=== PATIENT | female | born 1995 | race Caucasian/White ===

== ENCOUNTER 2017-05-29 10:24 | Emergency (ER) | payer BC, OTHER ==
[2017-05-29] MEDS ORDERED: diphenhydrAMINE 50 MG/ML SDV IVPUSH ONE (10:38)
[2017-05-29] MEDS ORDERED: LORazepam 2 MG/ML MDV IVPUSH ONE (10:39)
[2017-05-29] MEDS ORDERED: Ketorolac 30 MG/ML SDV IVPUSH ONE (10:39)
[2017-05-29] MEDS ORDERED: Ondansetron 4 MG/2 ML SDV IVPUSH ONE (10:39)
[2017-05-29] MEDS ORDERED: Sodium Chloride 0.9% 1,000 ML IV ONE (10:39)
--- NOTE | 2017-05-29 11:52 | CT ---
EXAMINATION: Non contrast CT head. Coronal and sagittal reformats. HISTORY: Pain FINDINGS: No evidence of intra or extra axial hemorrhage, mass, midline shift, hydrocephalus or edema. No hypoattenuation changes in the major vascular territories to suggest acute infarct. No abnormal intracranial calcifications are detected. No evidence of substantial vascular calcificat ions. Paranasal sinuses and mastoid air cells are well aerated without substantial findings. Pituitary fossa appears unremarkable. Calvarium is intact. No evidence of skull fracture. IMPRESSION: No acute intracranial findings.
[2017-05-29 12:16] LABS: CHLORIDE,CL 110 mmol/L (98-110); SODIUM,NA 141 mmol/L (136-146)
--- NOTE | 2017-05-29 12:29 | EDM.PDOC ---
ED HPI GENERAL MEDICAL PROBLEM - General Chief Complaint: Allergic Reaction Stated Complaint: ALLERGIC REACTION Time Seen by Provider: 05/29/17 10:50 Source of Information: Reports: Patient, Family History Limitations: Reports: No Limitations - History of Present Illness INITIAL COMMENTS - FREE TEXT/NARRATIVE: History of present illness: [21-year-old female comes in with complaints of acute allergic reaction. Patient indicates that she had taken a Naprosyn prescription and subsequently felt left-sided tingling and left-sided swelling of her tongue. Patient knowledge is history of taking Aleve without problems and with further discussion acknowledges that she has had intermittent periods of photophobia/ buzzing in her ears/syncopal/passing out episodes. Patient indicates that she is concerned and doesn't understand what is going on and would like to be evaluated.] Review of systems: As per history of present illness and below otherwise all systems reviewed and negative. Past medical history: As per history of present illness and as reviewed below otherwise noncontributory. Surgical history: As per history of present illness and as reviewed below otherwise noncontributory. Social history: No reported history of drug or alcohol abuse. Family history: As per history of present illness and as reviewed below otherwise noncontributory. Physical exam: HEENT: Atraumatic, normocephalic, pupils reactive, negative for conjunctival pallor or scleral icterus, mucous membranes moist, throat clear, neck supple, nontender, trachea midline. Lungs: Clear to auscultation, breath sounds equal bilaterally, chest nontender. Heart: S1S2, regular, negative for clicks, rubs, or JVD. Abdomen: Soft, nondistended, nontender. Negative for masses or hepatosplenomegaly. Negative for costovertebral tenderness. Pelvis: Stable nontender. Genitourinary: Deferred. Rectal: Deferred. Extremities: Atraumatic, negative for cords or calf pain. Neurovascular unremarkable. Neuro: Awake, alert, oriented. Cranial nerves II through XII unremarkable. Cerebellum unremarkable. Motor and sensory unremarkable throughout. Exam nonfocal. Global assessment is benign save the subjective complaint as noted in history of present illness patient at this time has no significant presentation of edema or swelling. Patient can make full sentences without slurring. Patient's tongue with even an uniform. Due to patient's protracted history of altered neurological sensorium will refer to neurology for further diagnostic workup and evaluation, as today all her findings are negative today. Diagnostics: [CBC, CMP, CT of the head, UA] Therapeutics: [IV fluid, Toradol, Zofran, Ativan] Impression: [#1 altered sensorium] Plan: [Referral to neurology] Definitive disposition and diagnosis as appropriate pending reevaluation and review of above. - Related Data Allergies Allergy/AdvReac Type Severity Reaction Status Date / Time oxycodone [Oxycodone] Allergy Hives Verified 05/29/17 10:32 promethazine Allergy Hives Verified 05/29/17 10:32 Sulfa (Sulfonamide Allergy Hives Verified 05/29/17 10:32 Antibiotics) Home Meds: Home Meds Levonorgestrel-Ethin Estradiol [Orsythia-28 Tablet] 1 each PO DAILY 05/29/17 [ History] Past Medical History - Past Health History Medical/Surgical History: Denies Medical/Surgical History Psychiatric History: Reports: Anxiety - Infectious Disease History Infectious Disease History: Reports: Chicken Pox - Past Surgical History HEENT Surgical History: Reports: Adenoidectomy, Tonsillectomy Social & Family History - Family History Family Medical History: Noncontributory - Tobacco Use Smoking Status *Q: Current Every Day Smoker Years of Tobacco use: 4 Packs/Tins Daily: 1 Second Hand Smoke Exposure: No - Caffeine Use Caffeine Use: Reports: Coffee - Alcohol Use Days Per Week of Alcohol Use: 0 - Recreational Drug Use Recreational Drug Use: No Drug Use in Last 12 Months: No ED ROS ALLERGIC REACTION - Review of Systems Review Of Systems: See Below (See history of present illness) ED EXAM GENERAL NO PERIP PULSE - Physical Exam Exam: See Below (See history of present illness) Course - Vital Signs Last Recorded V/S: Last Vital Signs Temp 36.5 C 05/29/17 12:00 Pulse 61 05/29/17 12:00 Resp 16 05/29/17 12:00 BP 106/64 05/29/17 12:00 Pulse Ox 98 05/29/17 12:00 - Orders/Labs/Meds Labs: Laboratory Tests 05/29/17 05/29/17 Range/Units 11:28 11:28 WBC 6.83 (4.0-11.0) K/uL RBC 4.79 (4.30-5.90) M/uL Hgb 15.6 (12.0-16.0) g/dL Hct 45.7 (36.0-46.0) % MCV 95.4 (80.0-98.0) fL MCH 32.6 H (27.0-32.0) pg MCHC 34.1 (31.0-37.0) g/dL RDW Std Deviation 47.6 (28.0-62.0) fl RDW Coeff of Ana Luisa 14 (11.0-15.0) % Plt Count 334 (150-400) K/uL MPV 10.00 (7.40-12.00) fL Neut % (Auto) 55.3 (48.0-80.0) % Lymph % (Auto) 30.5 (16.0-40.0) % [place] % (Auto) 9.1 (0.0-15.0) % Eos % (Auto) 4.8 (0.0-7.0) % Baso % (Auto) 0.3 (0.0-1.5) % Neut # (Auto) 3.8 (1.4-5.7) K/uL Lymph # (Auto) 2.1 (0.6-2.4) K/uL [place] # (Auto) 0.6 (0.0-0.8) K/uL Eos # (Auto) 0.3 (0.0-0.7) K/uL Baso # (Auto) 0.0 (0.0-0.1) K/uL Nucleated RBC % 0.0 /100WBC Nucleated RBCs # 0 K/uL Sodium 141 (136-146) mmol/L Potassium 3.7 (3.5-5.1) mmol/L Chloride 110 (98-110) mmol/L Carbon Dioxide 24 (21-31) mmol/L BUN 12 (6.0-23.0) mg/dL Creatinine 0.8 (0.6-1.5) mg/dL Est Cr Clr Drug Dosing TNP Estimated GFR (MDRD) > 60.0 ml/min Glucose 77 (60-110) mg/dL Calcium 9.6 (8.8-10.8) mg/dL Total Bilirubin 0.6 (0.1-1.5) mg/dL AST 17 (5-40) IU/L ALT 17 (8-54) IU/L Alkaline Phosphatase 60 (40-150) Total Protein 7.1 (6.0-8.0) g/dL Albumin 4.1 (3.5-5.0) g/dL Globulin 3.0 (2.0-3.5) g/dL Albumin/Globulin Ratio 1.4 (1.3-2.8) Meds: Medications Discontinued Medications Generic Name Dose Route Start Last Admin Trade Name Freq PRN Reason Stop Dose Admin Diphenhydramine HCl 50 mg 05/29/17 10:38 05/29/17 10:45 Benadryl IVPUSH 05/29/17 10:39 50 mg ONETIME ONE Administration Sodium Chloride 1,000 mls @ 999 mls/hr 05/29/17 10:39 05/29/17 10:45 Normal Saline IV 05/29/17 11:39 999 mls/hr STAT ONE Administration Ketorolac Tromethamine 30 mg 05/29/17 10:39 05/29/17 10:50 Toradol IVPUSH 05/29/17 10:40 30 mg ONETIME ONE Administration Lorazepam 1 mg 05/29/17 10:39 05/29/17 10:49 Ativan IVPUSH 05/29/17 10:40 1 mg ONETIME ONE Administration Ondansetron HCl 8 mg 05/29/17 10:39 05/29/17 10:51 Zofran IVPUSH 05/29/17 10:40 8 mg ONETIME ONE Administration Departure - Departure Time of Disposition: 12:33 Disposition: Home, Self-Care 01 Condition: Good Clinical Impression: Altered sensorium - Discharge Information Referrals: PCP,None [Primary Care Provider] - Additional Instructions: The following information is given to patients seen in the emergency department who are being discharged to home. This information is to outline your options for follow-up care. We provide all patients seen in our emergency department with a follow-up referral. The need for follow-up, as well as the timing and circumstances, are variable depending upon the specifics of your emergency department visit. If you don't have a primary care physician on staff, we will provide you with a referral. We always advise you to contact your personal physician following an emergency department visit to inform them of the circumstance of the visit and for follow-up with them and/or the need for any referrals to a consulting specialist. The emergency department will also refer you to a specialist when appropriate. This referral assures that you have the opportunity for follow-up care with a specialist. All of these measure are taken in an effort to provide you with optimal care, which includes your follow-up. Under all circumstances we always encourage you to contact your private physician who remains a resource for coordinating your care. When calling for follow-up care, please make the office aware that this follow-up is from your recent emergency room visit. If for any reason you are refused follow-up, please contact the [facility] Emergency Department at and asked to speak to the emergency department charge nurse. Please follow-up with primary care provider one to 2 days Call neurology and schedule appointment as soon as possible Return to ED as needed as discussed [facility] - Neurology Professional [address], [address] [place] [address]
== END 2017-05-29 12:57 | disposition home or self-care (01) ==
LOC: MW.ED 10:24
DX: R41.82 Altered mental status, unspecified (principal); F17.210 Nicotine dependence, cigarettes, uncomplicated; Z88.5 Allergy status to narcotic agent; Z88.2 Allergy status to sulfonamides; Z79.899 Other long term (current) drug therapy
CPT/HCPCS: 36415; 70450; 80053; 85025; 96361; 96374; 96375; 99284; J1200; J1885; J2060; J2405; J7040; 99283

== ENCOUNTER 2017-12-14 14:50 | Emergency (ER) | payer BC ==
[2017-12-14] MEDS ORDERED: Ondansetron 4 MG/2 ML SDV IVPUSH ONE (15:11)
[2017-12-14] MEDS ORDERED: Sodium Chloride 0.9% 1,000 ML IV ONE (15:11)
[2017-12-14] MEDS ORDERED: LORazepam 2 MG/ML SDV IVPUSH ONE (15:11)
[2017-12-14] MEDS ORDERED: Ketorolac 30 MG/ML SDV IVPUSH ONE (15:11)
--- NOTE | 2017-12-14 15:16 | EDM.PDOC ---
ED HPI GENERAL MEDICAL PROBLEM - General Chief Complaint: Abdominal Pain Stated Complaint: ABDOMINAL PAIN Time Seen by Provider: 12/14/17 14:54 Source of Information: Reports: Patient History Limitations: Reports: No Limitations - History of Present Illness INITIAL COMMENTS - FREE TEXT/NARRATIVE: HISTORY AND PHYSICAL: History of present illness: Patient is a 22-year-old female who presents to the emergency room today with complaints of epigastric pain that radiates up into her chest. She describes this pain as a sharp and stabbing, which causes nausea and vomiting. These symptoms have been intermittent and chronic since "the fourth grade". There have been more frequent and severe since her gallbladder and appendix were removed. He has doctored multiple times with different providers and has not found any diagnoses. Most recently she saw Dr. Mata who is working her up for abdominal migraines. Review of systems: As per history of present illness and below otherwise all systems reviewed and negative. Past medical history: As per history of present illness and as reviewed below otherwise noncontributory. Surgical history: As per history of present illness and as reviewed below otherwise noncontributory. Social history: No reported history of drug or alcohol abuse. Family history: As per history of present illness and as reviewed below otherwise noncontributory. Physical exam: General: HEENT: Atraumatic, normocephalic, pupils equal and reactive bilaterally, negative for conjunctival pallor or scleral icterus, mucous membranes moist, throat clear, neck supple, nontender, trachea midline. No drooling or trismus noted. No meningeal signs Lungs: Clear to auscultation, breath sounds equal bilaterally, chest nontender. Heart: S1S2, regular rate and rhythm without overt murmur Abdomen: Soft, nondistended, nontender. Negative for masses or hepatosplenomegaly. Negative for costovertebral tenderness. Pelvis: Stable nontender. Genitourinary: Deferred. Rectal: Deferred. Skin: Intact, warm, dry. No lesions or rashes noted. Extremities: Atraumatic, negative for cords or calf pain. Neurovascular unremarkable. Neuro: Awake, alert, oriented. Cranial nerves II through XII unremarkable. Cerebellum unremarkable. Motor and sensory unremarkable throughout. Exam nonfocal. Notes: Patient appears very anxious and has labored breathing. States she is seeing Dr. Mata at this time for the chronic epigastric pain and worked up for abdominal migraines. We will give her some IV fluid, Zofran and Toradol and Ativan. Lab work and CT of the abdomen and pelvis will be completed. Patient has had an appendectomy and cholecystectomy. Lab work is unremarkable. Patient does improved after the IV medications. CT of the abdomen/pelvis pending. CT shows no specific identifiable cause of the patient's abdominal pain. All results were shared with the patient and mother at bedside. We discussed possible treatment options to help manage her pain. She would like to try tramadol as needed along with Zofran. She will follow-up with her primary care provider next week for further evaluation and management. Denies any further questions at this time. Diagnostics: CBC, CMP, UA, urine , H. pylori, EKG, CT abdomen and pelvis Therapeutics: IV fluid, Zofran, Toradol, Ativan Impression: Abdominal pain Plan: 1. Runnels diet over the next 24-48 hours. Advance as tolerated. 2. Zofran as tolerated for nausea management. Tramadol for moderate to severe pain. May cause drowsiness, so do not take while driving or needing to be functioning outside the house. 3. These continued to see Dr. Mata to further evaluate and manage your abdominal complaints 4. Return to the ED as needed and as discussed. Definitive disposition and diagnosis as appropriate pending reevaluation and review of above. Onset: Today Duration: Day(s):, Chronic upper abdomen Pain Score (Numeric/FACES): 10 - Related Data Allergies Allergy/AdvReac Type Severity Reaction Status Date / Time oxycodone [Oxycodone] Allergy Hives Verified 12/14/17 15:10 promethazine Allergy Hives Verified 12/14/17 15:10 Sulfa (Sulfonamide Allergy Hives Verified 12/14/17 15:10 Antibiotics) Home Meds: Home Meds Levonorgestrel-Ethin Estradiol [Orsythia-28 Tablet] 1 each PO DAILY 05/29/17 [ History] Past Medical History - Past Health History Medical/Surgical History: Denies Medical/Surgical History Psychiatric History: Reports: Anxiety - Infectious Disease History Infectious Disease History: Reports: Chicken Pox - Past Surgical History HEENT Surgical History: Reports: Adenoidectomy, Tonsillectomy Social & Family History - Family History Family Medical History: Noncontributory - Caffeine Use Caffeine Use: Reports: Coffee ED ROS GENERAL - Review of Systems Review Of Systems: ROS reveals no pertinent complaints other than HPI. ED EXAM, GI/ABD - Physical Exam Exam: See Below (See dictation) Course - Vital Signs Last Recorded V/S: Last Vital Signs Temp 98.7 F 12/14/17 15:10 Pulse 100 12/14/17 15:10 Resp 18 12/14/17 15:10 BP 134/85 12/14/17 15:10 Pulse Ox 99 12/14/17 15:10 - Orders/Labs/Meds Orders: Active Orders 24 hr Category Date Time Status EKG Documentation Completion [RC] STAT Care 12/14/17 15:13 Active Abdomen Pelvis w Cont [CT] Stat Exams 12/14/17 15:17 Taken HCG QUALITATIVE,URINE [URCHEM] Stat Lab 12/14/17 16:27 Ordered UA W/MICROSCOPIC [URIN] Stat Lab 12/14/17 16:27 Ordered Labs: Laboratory Tests 12/14/17 12/14/17 12/14/17 Range/Units 15:46 15:46 15:46 WBC 7.30 (4.0-11.0) K/uL RBC 4.51 (4.30-5.90) M/uL Hgb 14.9 (12.0-16.0) g/dL Hct 42.8 (36.0-46.0) % MCV 94.9 (80.0-98.0) fL MCH 33.0 H (27.0-32.0) pg MCHC 34.8 (31.0-37.0) g/dL RDW Std Deviation 47.7 (28.0-62.0) fl RDW Coeff of Ana Luisa 14 (11.0-15.0) % Plt Count 278 (150-400) K/uL MPV 9.50 (7.40-12.00) fL Neut % (Auto) 64.2 (48.0-80.0) % Lymph % (Auto) 26.4 (16.0-40.0) % [place] % (Auto) 7.4 (0.0-15.0) % Eos % (Auto) 1.6 (0.0-7.0) % Baso % (Auto) 0.4 (0.0-1.5) % Neut # (Auto) 4.7 (1.4-5.7) K/uL Lymph # (Auto) 1.9 (0.6-2.4) K/uL [place] # (Auto) 0.5 (0.0-0.8) K/uL Eos # (Auto) 0.1 (0.0-0.7) K/uL Baso # (Auto) 0.0 (0.0-0.1) K/uL Nucleated RBC % 0.0 /100WBC Nucleated RBCs # 0 K/uL Sodium 141 (136-145) mmol/L Potassium 3.9 (3.5-5.1) mmol/L Chloride 108 H (98-107) mmol/L Carbon Dioxide 23.6 (21.0-32.0) mmol/L BUN 15 (7.0-18.0) mg/dL Creatinine 0.9 (0.6-1.0) mg/dL Est Cr Clr Drug Dosing 74.61 mL/min Estimated GFR (MDRD) > 60.0 ml/min Glucose 93 (74-106) mg/dL Calcium 9.6 (8.5-10.1) mg/dL Total Bilirubin 0.3 (0.2-1.0) mg/dL AST 20 (15-37) IU/L ALT 22 (14-63) IU/L Alkaline Phosphatase 60 (46-116) U/L Total Protein 7.2 (6.4-8.2) g/dL Albumin 3.8 (3.4-5.0) g/dL Globulin 3.4 (2.0-3.5) g/dL Albumin/Globulin Ratio 1.1 L (1.3-2.8) Urine Color Urine Appearance Urine pH (5.0-8.0) Ur Specific [place] (1.001-1.035) Urine Protein (NEGATIVE) mg/dL Urine Glucose (UA) (NEGATIVE) mg/dL Urine Ketones (NEGATIVE) mg/dL Urine Occult Blood (NEGATIVE) Urine Nitrite (NEGATIVE) Urine Bilirubin (NEGATIVE) Urine Urobilinogen (<2.0) EU/dL Ur Leukocyte Esterase (NEGATIVE) Urine RBC (0-2/HPF) Urine WBC (0-5/HPF) Ur Epithelial Cells (NONE-FEW) Urine Bacteria (NEGATIVE) Urine HCG, Qual (NEGATIVE) H. pylori IgG Antibody NEGATIVE (NEG) 12/14/17 12/14/17 Range/Units 16:27 16:27 WBC (4.0-11.0) K/uL RBC (4.30-5.90) M/uL Hgb (12.0-16.0) g/dL Hct (36.0-46.0) % MCV (80.0-98.0) fL MCH (27.0-32.0) pg MCHC (31.0-37.0) g/dL RDW Std Deviation (28.0-62.0) fl RDW Coeff of Ana Luisa (11.0-15.0) % Plt Count (150-400) K/uL MPV (7.40-12.00) fL Neut % (Auto) (48.0-80.0) % Lymph % (Auto) (16.0-40.0) % [place] % (Auto) (0.0-15.0) % Eos % (Auto) (0.0-7.0) % Baso % (Auto) (0.0-1.5) % Neut # (Auto) (1.4-5.7) K/uL Lymph # (Auto) (0.6-2.4) K/uL [place] # (Auto) (0.0-0.8) K/uL Eos # (Auto) (0.0-0.7) K/uL Baso # (Auto) (0.0-0.1) K/uL Nucleated RBC % /100WBC Nucleated RBCs # K/uL Sodium (136-145) mmol/L Potassium (3.5-5.1) mmol/L Chloride (98-107) mmol/L Carbon Dioxide (21.0-32.0) mmol/L BUN (7.0-18.0) mg/dL Creatinine (0.6-1.0) mg/dL Est Cr Clr Drug Dosing mL/min Estimated GFR (MDRD) ml/min Glucose (74-106) mg/dL Calcium (8.5-10.1) mg/dL Total Bilirubin (0.2-1.0) mg/dL AST (15-37) IU/L ALT (14-63) IU/L Alkaline Phosphatase (46-116) U/L Total Protein (6.4-8.2) g/dL Albumin (3.4-5.0) g/dL Globulin (2.0-3.5) g/dL Albumin/Globulin Ratio (1.3-2.8) Urine Color YELLOW Urine Appearance CLEAR Urine pH 6.5 (5.0-8.0) Ur Specific [place] 1.025 (1.001-1.035) Urine Protein NEGATIVE (NEGATIVE) mg/dL Urine Glucose (UA) NEGATIVE (NEGATIVE) mg/dL Urine Ketones NEGATIVE (NEGATIVE) mg/dL Urine Occult Blood TRACE-INTACT (NEGATIVE) Urine Nitrite NEGATIVE (NEGATIVE) Urine Bilirubin NEGATIVE (NEGATIVE) Urine Urobilinogen 0.2 (<2.0) EU/dL Ur Leukocyte Esterase NEGATIVE (NEGATIVE) Urine RBC 0-2 (0-2/HPF) Urine WBC 0-2 (0-5/HPF) Ur Epithelial Cells FEW (NONE-FEW) Urine Bacteria FEW (NEGATIVE) Urine HCG, Qual NEGATIVE (NEGATIVE) H. pylori IgG Antibody (NEG) Meds: Medications Discontinued Medications Generic Name Dose Route Start Last Admin Trade Name Freq PRN Reason Stop Dose Admin Al Hydroxide/Mg Hydroxide 15 0 ml 12/14/17 17:38 12/14/17 17:51 ml/ Metoclopramide HCl 5 mg/ PO 12/14/17 17:39 25 each Lidocaine HCl 5 ml ONETIME ONE Administration Sodium Chloride 1,000 mls @ 999 mls/hr 12/14/17 15:11 12/14/17 15:43 Normal Saline IV 12/14/17 16:11 999 mls/hr STAT ONE Administration Iopamidol 90 ml 12/14/17 17:39 12/14/17 17:40 Isovue-370 (76%) IVPUSH 12/14/17 17:40 90 ml ONETIME STA Administration Ketorolac Tromethamine 30 mg 12/14/17 15:11 12/14/17 15:42 Toradol IVPUSH 12/14/17 15:12 30 mg ONETIME ONE Administration Lorazepam 1 mg 12/14/17 15:11 12/14/17 15:43 Ativan IVPUSH 12/14/17 15:12 1 mg ONETIME ONE Administration Ondansetron HCl 4 mg 12/14/17 15:11 12/14/17 15:42 Zofran IVPUSH 12/14/17 15:12 4 mg ONETIME ONE Administration Departure - Departure Time of Disposition: 18:11 Disposition: Home, Self-Care 01 Clinical Impression: Abdominal pain Qualifiers: Abdominal location: epigastric Qualified Code(s): R10.13 - Epigastric pain - Discharge Information Instructions: Abdominal Pain, Adult, [id number] Referrals: Marques Swan MD [Primary Care Provider] - Forms: ED Department Discharge Additional Instructions: The following information is given to patients seen in the emergency department who are being discharged to home. This information is to outline your options for follow-up care. We provide all patients seen in our emergency department with a follow-up referral. The need for follow-up, as well as the timing and circumstances, are variable depending upon the specifics of your emergency department visit. If you don't have a primary care physician on staff, we will provide you with a referral. We always advise you to contact your personal physician following an emergency department visit to inform them of the circumstance of the visit and for follow-up with them and/or the need for any referrals to a consulting specialist. The emergency department will also refer you to a specialist when appropriate. This referral assures that you have the opportunity for follow-up care with a specialist. All of these measure are taken in an effort to provide you with optimal care, which includes your follow-up. Under all circumstances we always encourage you to contact your private physician who remains a resource for coordinating your care. When calling for follow-up care, please make the office aware that this follow-up is from your recent emergency room visit. If for any reason you are refused follow-up, please contact the [facility] Emergency Department at and asked to speak to the emergency department charge nurse. [facility] [address] [place] [id number] 1. Runnels diet over the next 24-48 hours. Advance as tolerated. 2. Zofran as tolerated for nausea management. Tramadol for moderate to severe pain. May cause drowsiness, so do not take while driving or needing to be functioning outside the house. 3. These continued to see Dr. Mata to further evaluate and manage your abdominal complaints 4. Return to the ED as needed and as discussed. - My Orders Last 24 Hours: My Active Orders 12/14/17 15:13 EKG Documentation Completion [RC] STAT 12/14/17 15:17 Abdomen Pelvis w Cont [CT] Stat 12/14/17 16:27 HCG QUALITATIVE,URINE [URCHEM] Stat UA W/MICROSCOPIC [URIN] Stat - Assessment/Plan Last 24 Hours: My Active Orders 12/14/17 15:13 EKG Documentation Completion [RC] STAT 12/14/17 15:17 Abdomen Pelvis w Cont [CT] Stat 12/14/17 16:27 HCG QUALITATIVE,URINE [URCHEM] Stat UA W/MICROSCOPIC [URIN] Stat
[2017-12-14 16:33] LABS: CHLORIDE,CL 108 mmol/L (98-107); SODIUM,NA 141 mmol/L (136-145)
[2017-12-14] MEDS ORDERED: Alum Hydrox/Mag Hydrox/Simeth 15 ML, Metoclopramide 5 MG, Lidocaine 2% 5 ML PO ONE ×3 (17:38)
[2017-12-14] MEDS ORDERED: Iopamidol 755 Mg/ML 100 ML Bottle IVPUSH STA (17:39)
--- NOTE | 2017-12-15 20:17 | CT ---
EXAM DATE: 12/14/17 PATIENT'S AGE: 22 Patient: KEEGAN MARTEL Facility: [place], [place] Site . Site : 1995 Study: CT Abdomen/Pelvis w cont [id number]/[id number] 5:38:19 PM Ordering Physician: Doctor Santoro Final Report: HISTORY: Upper abdominal pain. TECHNIQUE: Intravenous contrast enhanced CT of the abdomen and pelvis. 90 mL of Isovue-370 intravenous contrast administered. COMPARISON: 12/08/2007. FINDINGS: There is a 1.5 cm low-density lesion within the posterior segment of right hepatic lobe on image #17 of series 201. This is incompletely characterized but was present previously and appears minimally changed. Finding may therefore relate to a lesion such as a hemangioma. No new or enlarged liver lesion. Prior cholecystectomy. No biliary ductal dilatation. Spleen is normal. Adrenal glands are normal. There is no focal pancreatic abnormality or acute peripancreatic inflammatory change. Symmetric nephrograms. There is no renal mass or hydronephrosis. No obstructive urinary calculus. Urinary bladder is grossly unremarkable. - No bowel obstruction. No diverticulitis or definite colitis. Appendix is absent. There is no abdominal or pelvic fluid collection. No free air. No adenopathy. No abdominal aortic aneurysm. - No acute bony abnormality. - Mild dependent atelectasis within the lungs. No consolidation. IMPRESSION: 1. No specific identified cause of the patient`s abdominal pain. 2. Prior cholecystectomy. Normal appearance of the biliary system status post cholecystectomy. 3. Prior appendectomy. 4. Low-density lesion within the posterior segment right hepatic lobe is incompletely characterized though was present previously and appears minimally changed. This suggests this represents a benign lesion such as a hemangioma. Dictated by He Goldstein MD @ 12/14/2017 6:00:26 PM Please note that all CT scans at this facility use dose modulation, iterative reconstruction, and/or weight-based dosing when appropriate to reduce radiation dose to as low as reasonably achievable. Dictated by: He Goldstein MD @ 12/14/2017 18:00:57 (Electronic Signature) Report Signed by Proxy. [facility]manuel
== END 2017-12-14 18:29 | disposition home or self-care (01) ==
LOC: MW.ED 14:50
DX: R10.13 Epigastric pain (principal); Z88.5 Allergy status to narcotic agent; Z88.2 Allergy status to sulfonamides; Z88.8 Allergy status to other drugs, medicaments and biological substances; Z79.899 Other long term (current) drug therapy
CPT/HCPCS: 36415; 74177; 80053; 81001; 81025; 85025; 86677; 93005; 96361; 96374; 96375; 99284; A9270; J1885; J2060; J2405; J7040; Q9967

== ENCOUNTER 2018-01-18 07:00 | Emergency (ER) | payer BC ==
--- NOTE | 2018-01-18 07:34 | EDM.PDOC ---
ED HPI GENERAL MEDICAL PROBLEM - General Chief Complaint: ENT Problem Stated Complaint: EAR ACHE IN BOTH EARS, SORE THROAT Time Seen by Provider: 01/18/18 07:19 Source of Information: Reports: Patient History Limitations: Reports: No Limitations - History of Present Illness INITIAL COMMENTS - FREE TEXT/NARRATIVE: HISTORY AND PHYSICAL: History of present illness: 22-year-old female presenting emergency department with chief complaint of sore throat 2-3 days. Patient states approximately 2-3 days ago she woke up with a sore throat. She did take some [id number] cold medications without significant relief of her symptoms. She states it has progressively gotten worse to the point where she woke up this morning with worsening ability to swallow secondary to pain as well as bilateral ear pain left greater than right. Patient denies any significant fever however has been waking up with chills. She currently is able to talk without update her voice or any significant signs of drooling. She currently denies any chest pain, palpitations, shortness of breath, syncopal episodes, or focal neurologic deficits. Review of systems: As per history of present illness and below otherwise all systems reviewed and negative. Past medical history: As per history of present illness and as reviewed below otherwise noncontributory. Surgical history: As per history of present illness and as reviewed below otherwise noncontributory. Social history: No reported history of drug or alcohol abuse. Family history: As per history of present illness and as reviewed below otherwise noncontributory. Physical exam: HEENT: Bulging TM's bilaterally no erythema, or effusion, Left TM visible scar tissue. Atraumatic, normocephalic, pupils reactive, negative for conjunctival pallor or scleral icterus, mucous membranes moist, throat clear, neck supple, nontender, trachea midline. Lungs: Left basilar crackles, breath sounds equal bilaterally, chest nontender. Heart: S1S2, regular, negative for clicks, rubs, or JVD. Abdomen: Soft, nondistended, nontender. Negative for masses or hepatosplenomegaly. Negative for costovertebral tenderness. Pelvis: Stable nontender. Genitourinary: Deferred. Rectal: Deferred. Extremities: Atraumatic, negative for cords or calf pain. Neurovascular unremarkable. Neuro: Awake, alert, oriented. Cranial nerves II through XII unremarkable. Cerebellum unremarkable. Motor and sensory unremarkable throughout. Exam nonfocal. Diagnostics: Rapid strep Therapeutics: Azithromycin 5 day treatment Impression: Strep pharyngitis Plan: Rapid strep was negative however secondary to patient's symptoms and physical exam I will treat for suspected strep pharyngitis with azithromycin 5 day course. In addition I instructed patient to use Flonase and Afrin 2 puffs each nostril twice a day maximum 5 days for symptomatic relief of nasal congestion. She should follow-up with her primary care provider and return to emergency room if she has any new or worsening symptoms. Patient was in clear understanding and discharged in good condition. Bilateral Ear Pain Score (Numeric/FACES): 8 Throat Pain Score (Numeric/FACES): 8 - Related Data Allergies Allergy/AdvReac Type Severity Reaction Status Date / Time oxycodone [Oxycodone] Allergy Hives Verified 01/18/18 07:19 promethazine Allergy Hives Verified 01/18/18 07:19 Sulfa (Sulfonamide Allergy Hives Verified 01/18/18 07:19 Antibiotics) Home Meds: Home Meds Levonorgestrel-Ethin Estradiol [Orsythia-28 Tablet] 1 each PO DAILY 05/29/17 [ History] Past Medical History - Past Health History Medical/Surgical History: Denies Medical/Surgical History HEENT History: Reports: None Cardiovascular History: Reports: None Respiratory History: Reports: None Gastrointestinal History: Reports: Other (See Below) Other Gastrointestinal History: adbominal migraines Genitourinary History: Reports: None EMERGENCY DEPARTMENT History: Reports: None Musculoskeletal History: Reports: None Neurological History: Reports: None Psychiatric History: Reports: Anxiety Endocrine/Metabolic History: Reports: None Hematologic History: Reports: None Immunologic History: Reports: None Oncologic (Cancer) History: Reports: None Dermatologic History: Reports: None - Infectious Disease History Infectious Disease History: Reports: Chicken Pox - Past Surgical History Head Surgeries/Procedures: Reports: None HEENT Surgical History: Reports: Adenoidectomy, Tonsillectomy Cardiovascular Surgical History: Reports: None Respiratory Surgical History: Reports: None GI Surgical History: Reports: Appendectomy, Cholecystectomy Female Surgical History: Reports: None Endocrine Surgical History: Reports: None Neurological Surgical History: Reports: None Musculoskeletal Surgical History: Reports: None Oncologic Surgical History: Reports: None Dermatological Surgical History: Reports: None Social & Family History - Family History Family Medical History: Noncontributory - Tobacco Use Smoking Status *Q: Current Every Day Smoker Years of Tobacco use: 6 Packs/Tins Daily: 0.5 - Caffeine Use Caffeine Use: Reports: Coffee - Recreational Drug Use Recreational Drug Use: No ED ROS GENERAL - Review of Systems Review Of Systems: ROS reveals no pertinent complaints other than HPI. ED EXAM, GENERAL - Physical Exam Exam: See Below Course - Vital Signs Last Recorded V/S: Last Vital Signs Temp 97.8 F 01/18/18 07:12 Pulse 81 01/18/18 07:12 Resp 18 01/18/18 07:12 BP 127/73 01/18/18 07:12 Pulse Ox 95 01/18/18 07:12 - Orders/Labs/Meds Orders: Active Orders 24 hr Category Date Time Status CULTURE STREP A CONFIRMATION [RM] Stat Lab 01/18/18 07:35 Results STREP SCRN A RAPID W CULT CONF [RM] Stat Lab 01/18/18 07:35 Ordered Departure - Departure Time of Disposition: 08:03 Disposition: Home, Self-Care 01 Condition: Good Clinical Impression: Streptococcal pharyngitis - Discharge Information Referrals: Marques Swan MD [Primary Care Provider] - Forms: ED Department Discharge Additional Instructions: My general discharge The following information is given to patients seen in the emergency department who are being discharged to home. This information is to outline your options for follow-up care. We provide all patients seen in our emergency department with a follow-up referral. The need for follow-up, as well as the timing and circumstances, are variable depending upon the specifics of your emergency department visit. If you don't have a primary care physician on staff, we will provide you with a referral. We always advise you to contact your personal physician following an emergency department visit to inform them of the circumstance of the visit and for follow-up with them and/or the need for any referrals to a consulting specialist. The emergency department will also refer you to a specialist when appropriate. This referral assures that you have the opportunity for follow-up care with a specialist. All of these measure are taken in an effort to provide you with optimal care, which includes your follow-up. Under all circumstances we always encourage you to contact your private physician who remains a resource for coordinating your care. When calling for follow-up care, please make the office aware that this follow-up is from your recent emergency room visit. If for any reason you are refused follow-up, please contact the [facility] Emergency Department at and asked to speak to the emergency department charge nurse. [facility] [address] [place] [address] [address] 1. Take medications as prescribed. 2. Use Flonase and Afrin 2 puffs each nostril twice daily maximum 5 days at a time. 3. Use Tiffany pot 3 times a day. 4. Follow-up with primary care physician. 5. Return to emergency department if any new or worsening symptoms. - My Orders Last 24 Hours: My Active Orders 01/18/18 07:35 CULTURE STREP A CONFIRMATION [RM] Stat STREP SCRN A RAPID W CULT CONF [] Stat - Assessment/Plan Last 24 Hours: My Active Orders 01/18/18 07:35 CULTURE STREP A CONFIRMATION [] Stat STREP SCRN A RAPID W CULT CONF [] Stat
== END 2018-01-18 08:36 | disposition home or self-care (01) ==
LOC: MW.ED 07:00
DX: J02.0 Streptococcal pharyngitis (principal); F17.210 Nicotine dependence, cigarettes, uncomplicated; Z88.5 Allergy status to narcotic agent; Z88.2 Allergy status to sulfonamides; Z79.899 Other long term (current) drug therapy
CPT/HCPCS: 87081; 87880; 99283

== ENCOUNTER 2019-08-10 10:31 | Emergency (ER) | payer BC ==
[2019-08-10] MEDS ORDERED: Sodium Chloride 0.9% 1,000 ML IV ONE (10:54)
[2019-08-10] MEDS ORDERED: LORazepam 0.5 MG Tab PO ONE (10:54)
--- NOTE | 2019-08-10 11:01 | EDM.PDOC ---
ED HPI GENERAL MEDICAL PROBLEM - General Chief Complaint: Chest Pain Stated Complaint: CHEST PAIN/SHORTNESS OF BREATH Time Seen by Provider: 08/10/19 10:46 Source of Information: Reports: Patient History Limitations: Reports: No Limitations - History of Present Illness INITIAL COMMENTS - FREE TEXT/NARRATIVE: HISTORY AND PHYSICAL: History of present illness: Patient is a 23-year-old female who presents to the emergency room with complaints of dizziness, generalized fatigue, intermittent chest pain and shortness of breath. Patient reports that she started noticing symptoms on while opening presents. She said she started to feel dizzy and lightheaded and having some midsternal chest pain. She states after 30 minutes to an hour the symptoms eventually resolved. Since that time she has had similar episodes but was not overly concerned until she was awoken from sleep with shortness of breath and the chest pain. She describes it as a heavy tight feeling to her upper chest. She states overall she has felt fatigued and slightly off balance, stating "something just is not right". Denies any previous history of depression or anxiety. Denies any drug or alcohol abuse. No new or increased stressors that she is aware of. Patient denies any fever, chills, headache, change in vision, syncope or near syncope. Denies any neck pain/stiffness, back pain, or cough. Denies any abdominal pain, nausea, vomiting , diarrhea, constipation or dysuria. Has not noted any blood in urine or stool. Takes control, but states there could be chance of . Patient has been eating and drinking appropriately. Review of systems: As per history of present illness and below otherwise all systems reviewed and negative. Past medical history: As per history of present illness and as reviewed below otherwise noncontributory. Surgical history: As per history of present illness and as reviewed below otherwise noncontributory. Social history: See social history for further information Family history: As per history of present illness and as reviewed below otherwise noncontributory. Physical exam: General: Well-developed and well-nourished 23-year-old female. Alert and oriented. Nontoxic-appearing and in no acute distress. HEENT: Atraumatic, normocephalic, pupils equal and reactive bilaterally, negative for conjunctival pallor or scleral icterus, mucous membranes moist, TMs normal bilaterally, throat clear, neck supple, nontender, trachea midline. No drooling or trismus noted. No meningeal signs. No hot potato voice noted. Lungs: Clear to auscultation, breath sounds equal bilaterally, chest nontender. Heart: S1S2, regular rate and rhythm without overt murmur Abdomen: Soft, nondistended, nontender. Negative for masses or hepatosplenomegaly. Negative for costovertebral tenderness. Pelvis: Stable nontender. Skin: Intact, warm, dry. No lesions or rashes noted. Extremities: Atraumatic, moves all extremities per self without difficulty or deficits, negative for cords or calf pain. Neurovascular unremarkable. Neuro: Awake, alert, oriented. Cranial nerves II through XII unremarkable. Cerebellum unremarkable. Motor and sensory unremarkable throughout. Exam nonfocal. Notes: EKG shows sinus rhythm with rate of 79. All diagnostics are unremarkable. Patient does feel improved after therapeutics. We discussed the possibilty of this being anxiety related, as her symptoms sound similar. We discussed the need for follow up, will give a few tabs of the Ativan for home. MEdication education and supportive care measures were reviewed and discussed. Voices understanding and is agreeable to plan of care. Denies any further questions or concerns at this time. Diagnostics: CBC, CMP, TSH, UA, HCGU, EKG Therapeutics: IV fluids, Ativan Prescription: Ativan 0.5mg (#10) Impression: Nonspecific chest pain Plan: 1. All of today's labs/test were normal. 2. Increase your oral fluids, get plenty of rest. Small frequent meals throughout the day. 3. Follow up with your primary care provider. Return to the ED as needed and as discussed. Definitive disposition and diagnosis as appropriate pending reevaluation and review of above. chest Pain Score (Numeric/FACES): 8 - Related Data Allergies Allergy/AdvReac Type Severity Reaction Status Date / Time oxycodone [Oxycodone] Allergy Hives Verified 01/18/18 07:19 promethazine Allergy Hives Verified 01/18/18 07:19 Sulfa (Sulfonamide Allergy Hives Verified 01/18/18 07:19 Antibiotics) Home Meds: Home Meds Levonorgestrel-Ethin Estradiol [Orsythia-28 Tablet] 1 each PO DAILY 05/29/17 [ History] ALPRAZolam [Alprazolam Xr] 0.5 mg PO Q8HR PRN #10 tab 08/10/19 [Rx] Past Medical History - Past Health History Medical/Surgical History: Denies Medical/Surgical History HEENT History: Reports: None Cardiovascular History: Reports: None Respiratory History: Reports: None Gastrointestinal History: Reports: Other (See Below) Other Gastrointestinal History: adbominal migraines Genitourinary History: Reports: None CONTOUR GRINDER History: Reports: None Musculoskeletal History: Reports: None Neurological History: Reports: None Psychiatric History: Reports: Anxiety Endocrine/Metabolic History: Reports: None Hematologic History: Reports: None Immunologic History: Reports: None Oncologic (Cancer) History: Reports: None Dermatologic History: Reports: None - Infectious Disease History Infectious Disease History: Reports: Chicken Pox - Past Surgical History Head Surgeries/Procedures: Reports: None HEENT Surgical History: Reports: Adenoidectomy, Tonsillectomy Cardiovascular Surgical History: Reports: None Respiratory Surgical History: Reports: None GI Surgical History: Reports: Appendectomy, Cholecystectomy Female Surgical History: Reports: None Endocrine Surgical History: Reports: None Neurological Surgical History: Reports: None Musculoskeletal Surgical History: Reports: None Oncologic Surgical History: Reports: None Dermatological Surgical History: Reports: None Social & Family History - Family History Family Medical History: Noncontributory - Tobacco Use Smoking Status *Q: Former Smoker Used Tobacco, but Quit: Yes Month/Year Tobacco Last Used: 01/2019 - Caffeine Use Caffeine Use: Reports: Coffee - Recreational Drug Use Recreational Drug Use: No ED ROS GENERAL - Review of Systems Review Of Systems: Comprehensive ROS is negative, except as noted in HPI. ED EXAM, GENERAL - Physical Exam Exam: See Below (See dictation) Course - Vital Signs Last Recorded V/S: Last Vital Signs Temp 96.8 F 08/10/19 10:37 Pulse 102 H 08/10/19 10:37 Resp 20 08/10/19 10:37 BP 158/77 H 08/10/19 10:37 Pulse Ox 100 08/10/19 10:37 - Orders/Labs/Meds Orders: Active Orders 24 hr Category Date Time Status EKG Documentation Completion [RC] STAT Care 08/10/19 10:54 Active Labs: Laboratory Tests 08/10/19 08/10/19 08/10/19 Range/Units 11:03 11:03 11:07 WBC 9.97 (4.0-11.0) K/uL RBC 4.50 (4.30-5.90) M/uL Hgb 14.5 (12.0-16.0) g/dL Hct 41.7 (36.0-46.0) % MCV 92.7 (80.0-98.0) fL MCH 32.2 H (27.0-32.0) pg MCHC 34.8 (31.0-37.0) g/dL RDW Std Deviation 45.1 (28.0-62.0) fl RDW Coeff of Ana Luisa 13 (11.0-15.0) % Plt Count 302 (150-400) K/uL MPV 9.60 (7.40-12.00) fL Neut % (Auto) 76.7 (48.0-80.0) % Lymph % (Auto) 15.5 L (16.0-40.0) % [place] % (Auto) 4.5 (0.0-15.0) % Eos % (Auto) 3.1 (0.0-7.0) % Baso % (Auto) 0.2 (0.0-1.5) % Neut # (Auto) 7.6 H (1.4-5.7) K/uL Lymph # (Auto) 1.6 (0.6-2.4) K/uL [place] # (Auto) 0.5 (0.0-0.8) K/uL Eos # (Auto) 0.3 (0.0-0.7) K/uL Baso # (Auto) 0.0 (0.0-0.1) K/uL Nucleated RBC % 0.0 /100WBC Nucleated RBCs # 0 K/uL D-Dimer, Quantitative (0.0-0.50) mg/L FEU Sodium (136-145) mmol/L Potassium (3.5-5.1) mmol/L Chloride (98-107) mmol/L Carbon Dioxide (21.0-32.0) mmol/L BUN (7.0-18.0) mg/dL Creatinine (0.6-1.0) mg/dL Est Cr Clr Drug Dosing Estimated GFR (MDRD) ml/min Glucose (74-106) mg/dL Calcium (8.5-10.1) mg/dL Total Bilirubin (0.2-1.0) mg/dL AST (15-37) IU/L ALT (14-63) IU/L Alkaline Phosphatase (46-116) U/L Total Protein (6.4-8.2) g/dL Albumin (3.4-5.0) g/dL Globulin (2.6-4.0) g/dL Albumin/Globulin Ratio (0.9-1.6) TSH 3rd Generation (0.36-3.74) uIU/mL Urine Color YELLOW Urine Appearance CLEAR Urine pH 8.0 (5.0-8.0) Ur Specific [place] 1.015 (1.001-1.035) Urine Protein NEGATIVE (NEGATIVE) mg/dL Urine Glucose (UA) NEGATIVE (NEGATIVE) mg/dL Urine Ketones NEGATIVE (NEGATIVE) mg/dL Urine Occult Blood TRACE-INTACT H (NEGATIVE) Urine Nitrite NEGATIVE (NEGATIVE) Urine Bilirubin NEGATIVE (NEGATIVE) Urine Urobilinogen 0.2 (<2.0) EU/dL Ur Leukocyte Esterase NEGATIVE (NEGATIVE) Urine RBC 0-2 (0-2/HPF) Urine WBC NONE SEEN (0-5/HPF) Ur Epithelial Cells OCCASIONAL (NONE-FEW) Urine Bacteria RARE (NEGATIVE) Urine HCG, Qual NEGATIVE (NEGATIVE) 08/10/19 08/10/19 Range/Units 11:07 11:07 WBC (4.0-11.0) K/uL RBC (4.30-5.90) M/uL Hgb (12.0-16.0) g/dL Hct (36.0-46.0) % MCV (80.0-98.0) fL MCH (27.0-32.0) pg MCHC (31.0-37.0) g/dL RDW Std Deviation (28.0-62.0) fl RDW Coeff of Ana Luisa (11.0-15.0) % Plt Count (150-400) K/uL MPV (7.40-12.00) fL Neut % (Auto) (48.0-80.0) % Lymph % (Auto) (16.0-40.0) % [place] % (Auto) (0.0-15.0) % Eos % (Auto) (0.0-7.0) % Baso % (Auto) (0.0-1.5) % Neut # (Auto) (1.4-5.7) K/uL Lymph # (Auto) (0.6-2.4) K/uL [place] # (Auto) (0.0-0.8) K/uL Eos # (Auto) (0.0-0.7) K/uL Baso # (Auto) (0.0-0.1) K/uL Nucleated RBC % /100WBC Nucleated RBCs # K/uL D-Dimer, Quantitative < 0.19 (0.0-0.50) mg/L FEU Sodium 140 (136-145) mmol/L Potassium 3.5 (3.5-5.1) mmol/L Chloride 103 (98-107) mmol/L Carbon Dioxide 25.4 (21.0-32.0) mmol/L BUN 14 (7.0-18.0) mg/dL Creatinine 0.9 (0.6-1.0) mg/dL Est Cr Clr Drug Dosing TNP Estimated GFR (MDRD) > 60.0 ml/min Glucose 86 (74-106) mg/dL Calcium 9.1 (8.5-10.1) mg/dL Total Bilirubin 0.3 (0.2-1.0) mg/dL AST 19 (15-37) IU/L ALT 18 (14-63) IU/L Alkaline Phosphatase 59 (46-116) U/L Total Protein 7.4 (6.4-8.2) g/dL Albumin 3.8 (3.4-5.0) g/dL Globulin 3.6 (2.6-4.0) g/dL Albumin/Globulin Ratio 1.1 (0.9-1.6) TSH 3rd Generation 3.02 (0.36-3.74) uIU/mL Urine Color Urine Appearance Urine pH (5.0-8.0) Ur Specific [place] (1.001-1.035) Urine Protein (NEGATIVE) mg/dL Urine Glucose (UA) (NEGATIVE) mg/dL Urine Ketones (NEGATIVE) mg/dL Urine Occult Blood (NEGATIVE) Urine Nitrite (NEGATIVE) Urine Bilirubin (NEGATIVE) Urine Urobilinogen (<2.0) EU/dL Ur Leukocyte Esterase (NEGATIVE) Urine RBC (0-2/HPF) Urine WBC (0-5/HPF) Ur Epithelial Cells (NONE-FEW) Urine Bacteria (NEGATIVE) Urine HCG, Qual (NEGATIVE) Meds: Medications Discontinued Medications Generic Name Dose Route Start Last Admin Trade Name Freq PRN Reason Stop Dose Admin Sodium Chloride 1,000 mls @ 999 mls/hr 08/10/19 10:54 08/10/19 11:20 Normal Saline IV 08/10/19 11:54 999 mls/hr STAT ONE Administration Lorazepam 0.5 mg 08/10/19 10:54 08/10/19 11:20 Ativan PO 08/10/19 10:55 0.5 mg ONETIME ONE Administration Ondansetron HCl 4 mg 08/10/19 11:07 08/10/19 11:20 Zofran IVPUSH 08/10/19 11:08 4 mg ONETIME ONE Administration Departure - Departure Time of Disposition: 12:39 Disposition: Home, Self-Care 01 Clinical Impression: Nonspecific chest pain - Discharge Information Prescriptions: ALPRAZolam [Alprazolam Xr] 0.5 mg PO Q8HR PRN #10 tab PRN Reason: Anxiety Instructions: Nonspecific Chest Pain, [id number] Referrals: Marques Swna MD [Primary Care Provider] - Forms: ED Department Discharge Additional Instructions: The following information is given to patients seen in the emergency department who are being discharged to home. This information is to outline your options for follow-up care. We provide all patients seen in our emergency department with a follow-up referral. The need for follow-up, as well as the timing and circumstances, are variable depending upon the specifics of your emergency department visit. If you don't have a primary care physician on staff, we will provide you with a referral. We always advise you to contact your personal physician following an emergency department visit to inform them of the circumstance of the visit and for follow-up with them and/or the need for any referrals to a consulting specialist. The emergency department will also refer you to a specialist when appropriate. This referral assures that you have the opportunity for follow-up care with a specialist. All of these measure are taken in an effort to provide you with optimal care, which includes your follow-up. Under all circumstances we always encourage you to contact your private physician who remains a resource for coordinating your care. When calling for follow-up care, please make the office aware that this follow-up is from your recent emergency room visit. If for any reason you are refused follow-up, please contact the [facility] Emergency Department at and asked to speak to the emergency department charge nurse. [facility] [address] [place] [address] [facility] [address] [place] [id number] 1. All of today's labs/test were normal. 2. Increase your oral fluids, get plenty of rest. Small frequent meals throughout the day. 3. Follow up with your primary care provider. Return to the ED as needed and as discussed. Sepsis Event Note - Evaluation Sepsis Screening Result: No Definite Risk - Focused Exam Vital Signs: Vital Signs Temp Pulse Resp BP Pulse Ox 08/10/19 10:37 96.8 F 102 H 20 158/77 H 100 Date Exam was Performed: 08/10/19 Time Exam was Performed: 12:38 - My Orders Last 24 Hours: My Active Orders 08/10/19 10:54 EKG Documentation Completion [RC] STAT - Assessment/Plan Last 24 Hours: My Active Orders 08/10/19 10:54 EKG Documentation Completion [RC] STAT
[2019-08-10] MEDS ORDERED: Ondansetron 4 MG/2 ML SDV IVPUSH ONE (11:07)
[2019-08-10 12:00] LABS: BLOOD UREA NITROGEN,BUN 14 mg/dL (7.0-18.0); CARBON DIOXIDE,CO2 25.4 mmol/L (21.0-32.0); CHLORIDE,CL 103 mmol/L (98-107); GLUCOSE RANDOM 86 mg/dL (74-106); POTASSIUM,K 3.5 mmol/L (3.5-5.1); SODIUM,NA 140 mmol/L (136-145)
--- NOTE | 2019-08-10 12:28 | CR ---
INDICATION: chest pain TECHNIQUE: Chest 2 views. COMPARISON: 12/02/18 FINDINGS: Cardiovascular and mediastinum: Heart size and vasculature are normal in caliber and appearance. Mediastinum is within normal limits. Lungs and pleural spaces: Lungs are clear. No sign of infiltrate or mass. No sign of pleural effusion. No pneumothorax. Bones and soft tissues: No significant findings. IMPRESSION: Unremarkable chest. Dictated by: Evaristo Mclain MD @ 08/10/2019 12:26:30 (Electronically Signed)
== END 2019-08-10 12:48 | disposition home or self-care (01) ==
LOC: MW.ED 10:31
DX: R07.89 Other chest pain (principal); Z88.2 Allergy status to sulfonamides; Z88.6 Allergy status to analgesic agent; Z98.890 Other specified postprocedural states; Z90.49 Acquired absence of other specified parts of digestive tract; Z87.891 Personal history of nicotine dependence
CPT/HCPCS: 71046; 80053; 81001; 81025; 84443; 85025; 85379; 93005; 96361; 96374; 99285; A9270; J2405; J7030; 99283

== ENCOUNTER 2022-04-11 11:36 | Emergency (ER) | payer BC ==
[2022-04-11] MEDS ORDERED: Ketorolac 30 MG/ML SDV IVPUSH ONE (11:48)
[2022-04-11] MEDS ORDERED: Sodium Chloride 0.9% 1,000 ML IV ONE (11:49)
[2022-04-11 12:41] LABS: CARBON DIOXIDE,CO2 20.9 mmol/L (21.0-32.0); POTASSIUM,K 3.9 mmol/L (3.5-5.1)
[2022-04-11] MEDS ORDERED: Alum Hydro/Mag Hydro/Simeth XS 15 ML, Metoclopramide 5 MG, Lidocaine 2% 5 ML PO ONE ×3 (12:56)
[2022-04-11] MEDS ORDERED: Morphine 4 MG/ML VIAL IVPUSH ONE (12:56)
[2022-04-11] MEDS ORDERED: Ondansetron 4 MG/2 ML SDV IVPUSH ONE (12:57)
== END 2022-04-11 15:58 | disposition home or self-care (01) ==
LOC: MW.ED 11:36
DX: R10.9 Unspecified abdominal pain (principal); E03.9 Hypothyroidism, unspecified; Z88.5 Allergy status to narcotic agent; Z88.8 Allergy status to other drugs, medicaments and biological substances; Z88.2 Allergy status to sulfonamides; Z79.899 Other long term (current) drug therapy; Z90.49 Acquired absence of other specified parts of digestive tract; Z20.822 Contact with and (suspected) exposure to COVID-19
CPT/HCPCS: 36415; 71045; 80053; 81001; 81025; 83690; 84439; 84443; 84484; 85025; 87086; 87635; 93005; 96361; 96374; 96375; 99285; A9270; J1885; J2270; J2405; J7030; U0002

== ENCOUNTER 2023-06-18 15:12 | Emergency (ER) | payer BC ==
[2023-06-18] MEDS ORDERED: Sodium Chloride 0.9% 2.5 ML Syringe FLUSH PRN (15:54)
[2023-06-18] MEDS ORDERED: Sodium Chloride 0.9% 10 ML Syringe FLUSH PRN (15:54)
[2023-06-18] MEDS ORDERED: Sodium Chloride 0.9% 1,000 ML IV ONE ×2 (15:55→16:46)
[2023-06-18 16:13] LABS: BASOPHILS ABSOLUTE AUTO 0.04 K/uL (0.00-0.20); BASOPHILS PERCENT AUTO 0.6 % (0.0-1.0); EOSINOPHILS ABSOLUTE AUTO 0.24 K/uL (0.00-0.45); EOSINOPHILS PERCENT AUTO 3.4 % (0.0-6.0); HEMATOCRIT 40.2 % (37.0-47.0); HEMOGLOBIN 14.2 g/dL (12.0-16.0); IMMATURE GRAN ABSOLUTE AUTO 0.02 K/uL (0.00-0.05); IMMATURE GRAN PERCENT AUTO 0.3 % (0.0-0.4); LYMPHOCYTES ABSOLUTE AUTO 2.71 K/uL (1.00-4.80); LYMPHOCYTES PERCENT AUTO 38.8 % (24.0-44.0); MEAN CORPUSCULAR HEMOGLOBIN 31.6 pg (28.0-32.0); MEAN CORPUSCULAR HGB CONC 35.3 g/dL (32.0-36.0); MEAN CORPUSCULAR VOLUME 89.3 fL (83.0-99.0); MEAN PLATELET VOLUME 9.7 fL (9.4-12.3); MONOCYTES ABSOLUTE AUTO 0.55 K/uL (0.00-0.80); MONOCYTES PERCENT AUTO 7.9 % (0.0-8.0); NEUTROPHILS ABSOLUTE AUTO 3.42 K/uL (1.80-7.70); PLATELET COUNT,PLT 291 K/uL (150-400); WHITE BLOOD CELL COUNT,WBC 6.98 K/uL (3.9-11.3)
[2023-06-18 16:20] LABS: APPEARANCE,URINE CLEAR; BILIRUBIN,URINE NEGATIVE (NEGATIVE); COLOR,URINE YELLOW; GLUCOSE,URINE NEGATIVE (NEGATIVE); KETONES,URINE NEGATIVE (NEGATIVE); LEUKOCYTE ESTERASE,URINE NEGATIVE (NEGATIVE); NITRITE,URINE NEGATIVE (NEGATIVE); OCCULT BLOOD,URINE NEGATIVE (NEGATIVE); PROTEIN,URINE NEGATIVE (NEGATIVE); UROBILINOGEN,URINE 0.2 EU/dL (<2.0)
[2023-06-18 16:30] LABS: AMPHETAMINES SCREEN, URINE NEGATIVE (CUTOFF=500); BARBITURATE SCREEN,URINE NEGATIVE (CUTOFF=200); BENZODIAZEPINES SCREEN,URINE NEGATIVE (CUTOFF=150); BUPRENORPHINE SCREEN,URINE NEGATIVE (CUTOFF=10); METHADONE SCREEN, URINE NEGATIVE (CUTOFF=200); METHAMPHETAMINES SCREEN, URINE NEGATIVE (CUTOFF=500); OXYCODONE SCREEN,URINE NEGATIVE (CUT0FF=100); PCP SCREEN,URINE NEGATIVE (CUTOFF=25); PROPOXYPHENE SCREEN,URINE NEGATIVE (CUTOFF=300); THC SCREEN,URINE 20 NG/ML NEGATIVE (CUTOFF=50)
[2023-06-18 16:55] LABS: A/G RATIO 0.9 (0.9-1.6); ALANINE AMINOTRANSFERASE,ALT 23 IU/L (14-63); ALBUMIN 3.5 g/dL (3.4-5.0); ALKALINE PHOSPHATASE 73 U/L (46-116); ASPARTATE AMNIOTRANSFERASE,AST 15 IU/L (15-37); BILIRUBIN TOTAL 0.2 mg/dL (0.2-1.0); BLOOD UREA NITROGEN,BUN 10 mg/dL (7.0-18.0); CALCIUM 9.5 mg/dL (8.5-10.1); CARBON DIOXIDE,CO2 25.5 mmol/L (21.0-32.0); CHLORIDE,CL 103 mmol/L (98-107); CREATININE 0.8 mg/dL (0.6-1.0); EST CRCL DRUG DOSING (CG) 95.89 mL/min; ESTIMATED GFR 104 mL/min (>60); GLUCOSE RANDOM 85 mg/dL (74-106); POTASSIUM,K 3.8 mmol/L (3.5-5.1); PROTEIN TOTAL,TP 7.5 g/dL (6.4-8.2); SODIUM,NA 138 mmol/L (136-145)
[2023-06-18] MEDS ORDERED: Ondansetron 4 MG/2 ML SDV IVPUSH ONE (17:18)
[2023-06-18] MEDS ORDERED: Meclizine 25 MG Tab PO ONE (17:26)
== END 2023-06-18 18:56 | disposition home or self-care (01) ==
LOC: MW.ED 15:12
DX: R55 Syncope and collapse (principal); Z90.49 Acquired absence of other specified parts of digestive tract; Z79.899 Other long term (current) drug therapy; Z88.2 Allergy status to sulfonamides; Z88.5 Allergy status to narcotic agent; Z88.8 Allergy status to other drugs, medicaments and biological substances
CPT/HCPCS: 36415; 70450; 80053; 80305; 81003; 81025; 84443; 84484; 85025; 93005; 96361; 96374; 99284; A9270; J2405; J3490; J7030; 93010

== ENCOUNTER 2025-06-19 14:32 | Inpatient (IN) | payer OTHER ==
[2025-06-19] MEDS ORDERED: Carboprost Tromethamine 250 MCG/1 mL Vial IM PRN (17:52)
[2025-06-19] MEDS ORDERED: Sodium Chloride 0.9% 10 ML Syringe FLUSH PRN (17:52)
[2025-06-19] MEDS ORDERED: Sodium Chloride 0.9% 2.5 ML Syringe FLUSH PRN (17:52)
[2025-06-19] MEDS ORDERED: Water For Irrigation,Sterile 1,000 ML Container IRR PRN (17:52)
[2025-06-19] MEDS ORDERED: Oxytocin/0.9 % Sodium Chloride 30 UNIT/500 ML BAG IV SCH (18:00)
[2025-06-19] MEDS ORDERED: ePHEDrine 50 MG/ML SDV IVPUSH PRN (18:03)
[2025-06-19 18:07] LABS: MEAN PLATELET VOLUME 12.1 fL (9.4-12.3); NRBC ABSOLUTE 0.00 K/uL (0.00-0.02); NRBC PERCENT 0.0 /100WBC (0.0-0.2); PLATELET COUNT,PLT 227 K/uL (150-400); RED BLOOD CELL COUNT 3.99 M/uL (4.10-5.30); WHITE BLOOD CELL COUNT,WBC 12.41 K/uL (3.9-11.3)
[2025-06-19] MEDS ORDERED: dexmedeTOMIDine HCl 200 MCG/2 ML SDV EPIDUR SCH (18:15)
[2025-06-19] MEDS: Lactated Ringers 1,000 ML IV SCH (18:31)
[2025-06-19] MEDS ORDERED: Terbutaline 1 MG/ML SDV SUBCUT PRN (19:56)
[2025-06-19] MEDS: Oxytocin/0.9 % Sodium Chloride 30 UNIT/500 ML BAG IV SCH (23:04)
[2025-06-20] MEDS: Butorphanol 1 MG/ML SDV IVPUSH PRN (00:14)
[2025-06-20] MEDS: Ropivacaine HCl/PF 400 MG in Premix Bag 1 BAG EPIDUR SCH (01:10)
[2025-06-20] MEDS: Ondansetron 4 MG/2 ML SDV IVPUSH PRN (01:19)
[2025-06-20] MEDS: Oxytocin 10 Units/1 ML SDV IM ONE (12:24)
[2025-06-20] MEDS ORDERED: Lanolin 100% Cream 7 GM Tube TOP PRN (12:51)
[2025-06-20 13:42] LABS: PH,UMBILICAL ARTERIAL 7.21 (7.18-7.38); PH,UMBILICAL VENOUS 7.26 (7.25-7.45)
[2025-06-20] MEDS: Witch Hazel Medicated Pads 40/Jar TOP PRN (14:14)
[2025-06-20] MEDS: Benzocaine/Menthol 20%-0.5% Spray 78 GM Cannister TOP PRN (14:14)
[2025-06-21 05:52] LABS: MEAN PLATELET VOLUME 10.8 fL (9.4-12.3); NRBC ABSOLUTE 0.00 K/uL (0.00-0.02); NRBC PERCENT 0.0 /100WBC (0.0-0.2); PLATELET COUNT,PLT 156 K/uL (150-400); RED BLOOD CELL COUNT 3.15 M/uL (4.10-5.30); WHITE BLOOD CELL COUNT,WBC 17.78 K/uL (3.9-11.3)
[2025-06-21] MEDS: Prenatal Multivitamin with Calcium/Folic Acid/Iron Tab PO SCH (08:47)
== END 2025-06-22 17:21 | disposition home or self-care (01) | DRG 806 ==
LOC: MW.OBCHECK 14:32 → MW.OB 14:33 → MW.OBCHECK 18:21 → OBSVTOIN 06-20 12:30 → MW.OB 06-20 19:21
PROVIDERS: ADMIT Obstetrics & Gynecology; ATTEND Obstetrics & Gynecology Obstetrics
PROC: 10E0XZZ Delivery of Products of Conception, External Approach (ICD-10-PCS; principal; 2025-06-20)
PROC: 10907ZC Drainage of Amniotic Fluid, Therapeutic from Products of Conception, Via Natural or Artificial Opening (ICD-10-PCS; 2025-06-20)
PROC: 0UQMXZZ Repair Vulva, External Approach (ICD-10-PCS; 2025-06-20)
PROC: 3E0R3BZ Introduction of Anesthetic Agent into Spinal Canal, Percutaneous Approach (ICD-10-PCS; 2025-06-20)
PROC: 00HU33Z Insertion of Infusion Device into Spinal Canal, Percutaneous Approach (ICD-10-PCS; 2025-06-20)
DX: O99.824 Streptococcus B carrier state complicating childbirth (principal); D62 Acute posthemorrhagic anemia; Z37.0 Single live birth; O99.214 Obesity complicating childbirth; E66.09 Other obesity due to excess calories; O69.1XX0 Labor and delivery complicated by cord around neck, with compression, not applicable or unspecified; O70.0 First degree perineal laceration during delivery; O99.02 Anemia complicating childbirth; Z3A.38 38 weeks gestation of pregnancy
CPT/HCPCS: 36415; 51702; 59025; 59409; 82803; 84112; 85027; 86592; 86850; 86900; 86901; A9270-GY; J0290; J0595; J2371; J2405; J2590; J2795; J7120